=== PATIENT | female | born 1955 | race African-American/Black ===

== ENCOUNTER 2017-08-09 05:48 | Day surgery (SDC) | payer OTHER ==
[~2017-08-09] VITALS: Ht 167.6 cm; Wt 78.0 kg
[~2017-08-09 05:48] MED LIST: CETI-32 PO; ENAL10TA21 PO; OMEP40EC1 PO; ORE25 PO; [UNRECOGNIZED DRUG - REMARK]
[2017-08-09] MEDS ORDERED: VAS10 PO (07:12)
[2017-08-09] MEDS ORDERED: BUPIVACAINE-MPF 0.25% 30 ML VIAL INJ ONE (07:14)
[2017-08-09] MEDS ORDERED: fentaNYL 0.05 MG/ML VIAL ONE (07:52)
[2017-08-09] MEDS ORDERED: HYDROmorphone PFS 2 MG/ML SYR ONE (07:53)
[2017-08-09] MEDS ORDERED: ONDANSETRON 4 MG/2 ML VIAL IVP ONE (07:57)
[2017-08-09] MEDS ORDERED: GLYCOPYRROLATE 0.2 MG/ML VIAL IV ONE (07:57)
[2017-08-09] MEDS ORDERED: SEVOFLURANE 250 ML BTL INH ONE (07:57)
[2017-08-09] MEDS ORDERED: DEXAMETHASONE 4 MG/ML VIAL IVP ONE (07:57)
[2017-08-09] MEDS ORDERED: ROCURONIUM 50 MG/5 ML VIAL IV ONE (07:57)
[2017-08-09] MEDS ORDERED: NEOSTIGMINE 1:1000 10 MG/10 ML VIAL IM ONE (07:57)
[2017-08-09] MEDS ORDERED: PROPOFOL 200 MG/20 ML VIAL IV ONE (07:57)
[2017-08-09] MEDS ORDERED: NACL 0.9% 1,000 ML IV SCH (09:18)
[2017-08-09] MEDS ORDERED: HYDROmorphone 1 MG/ML AMP IVP PRN ×2 (09:20→10:10)
[2017-08-09] MEDS ORDERED: MORPHINE SULFATE 4 MG/ML SYR IV PRN (09:20)
[2017-08-09] MEDS ORDERED: HYDROcodone/APAP 5/325 MG 1 TAB TAB PO PRN (09:20)
[2017-08-09] MEDS ORDERED: ONDANSETRON 4 MG/2 ML VIAL IV PRN (09:20)
[2017-08-09] MEDS: HYDROmorphone PFS 2 MG/ML SYR ONE ×2 (09:58→10:08)
[2017-08-09] MEDS ORDERED: HYDROmorphone 1 MG/ML AMP IVP ONE (10:55)
== END 2017-08-09 12:10 | disposition home or self-care (01) ==
LOC: MRD 05:48 → MMU 05:57 → MRD 12:10
PROVIDERS: ATTEND Surgery
DX: K80.10 Calculus of gallbladder with chronic cholecystitis without obstruction (principal); I10 Essential (primary) hypertension; Z98.890 Other specified postprocedural states
CPT/HCPCS: 36415; 71010; 86886; 86900; 86901; 93005; J0690; J1100; J1170; J2405; J2704; J2710; J3010; J3490; J7030; J7060; J7120